=== PATIENT | female | born 1975 | race Two or more races ===

== ENCOUNTER 2025-02-14 12:00 | Emergency (ER) | payer MEDICAID, SELFPAY ==
[2025-02-14 12:01] VITALS: BMI 24.9
[2025-02-14 12:31] VITALS: BP 146/96; PULSE 96; RESP 18; TEMP 36.6; O2SAT 97
--- NOTE | 2025-02-14 12:32 | XR_ITS ---
Examination: Hand, right 3 views Technique: Hand AP, oblique, lateral 3 views Date and time of exam: February 14, 2025 1249 hours INDICATIONS: Patient fell today with injury to the hand, hand pain FINDINGS: No acute fracture No dislocation No foreign body IMPRESSION: No acute fracture
--- NOTE | 2025-02-14 12:32 | XR_ITS ---
Examination: Wrist, right 3 views Technique: Wrist AP, oblique, lateral 3 views Date and time of exam: February 14, 2025 1249 hours INDICATIONS: Patient fell today with into the wrist, wrist pain. FINDINGS: No acute fracture On the lateral view the distal ulna is mildly dorsally positioned No foreign body IMPRESSION: No acute fracture On the lateral view the distal ulna is mildly dorsally positioned, clinical correlation advised, recommend follow-up true lateral view of the wrist as clinically warranted
--- NOTE | 2025-02-14 12:33 | EDNOTE_ITS ---
ED General RME/HPI General Chief complaint: Fall Stated complaint: FELL OFF LATTER YESTERDAY, RT HAND/ARM PAIN Time Seen by Provider: 02/14/25 12:23 Arrival date/time: 02/14/25 12:00 CC: Right hand right wrist pain HPI fell off a ladder picking fruit last night, denies LOC or LOC. Has mild abrasion to the left leg. No other complaints denies LOC altered level of consciousness nausea vomiting or diarrhea comes in today to get checked out . Related Data Previous Rx's ?Medication ?Instructions ?Recorded hydroxyzine HCl 25 mg tablet 25 mg PO QID PRN itching #20 tabs 10/31/18 Allergies Allergy/AdvReac Type Severity Reaction Status Date / Time No Known Allergies Allergy Verified 02/14/25 12:01 Review of Systems Review of Systems Narrative Review of Systems: GEN: No fever, no chills, no weight loss EYES: No discharge, no visual changes, no pain HEENT: No ear pain, no congestion, no sore throat PULM: No shortness of breath, no cough, no congestion CV: No chest pain, no dyspnea on exertion, no palpitations GI: No nausea, no vomiting, no diarrhea, no pain, no constipation : No frequency, no urgency, no dysuria MUSC/SKEL: + joint pain, no back pain SKIN: No rash PSYCH: No hallucinations, no depression HEME/LYMPH: No easy bleeding or bruising tendencies NEURO: No weakness, no headache Past Medical History Past Medical History CARDIAC: Negative Congestive Heart Failure RESPIRATORY: Negative Chronic Obstructive Pulmonary Disease (COPD) GENITOURINARY: Negative Renal Disease ENDOCRINE: Negative Diabetes Mellitus Type 1 or Diabetes Mellitus Type 2 Social History SMOKING STATUS: Never smoker ED Exam Narrative Physical exam: [General: Obese not in cot no acute distress Head normocephalic no step-off hematoma induration ulceration or crepitus. HEENT: No raccoon's eyes [place] signs eyes pupils are PERRLA EOMs are intact mouth pink moist membranes uvula is midline swallow symmetrical phonation is normal all the subsystems of HEENT are within acceptable limits Neck is supple nontender Chest equal chest rise nontender to palpation Respiratory: Clear to auscultation no wheezes crackles or rubs CV: Rate rhythm is regular no murmurs rubs or clicks Abdomen is soft nontender no masses positive bowel sounds all 4 quadrants Back: No CVA tenderness no spinous process tenderness from cervical spine thoracic and lumbar spine Skin: Intact no petechiae rash induration ulceration or crepitus Extremities: Tenderness to palpation over the thenar eminence of the first digit right hand, full range of motion with pain no significant edema no gross abnormalities cap refill less than 2 seconds neurosensory intact full range of motion of the right wrist. No edema erythema or obvious deformity. Moving all other extremities against resistance cap refill less than 2 seconds neurosensory intact Neuro: Awake alert oriented x3 Glascow coma 15 no focal deficits] Course Quality Measures none Orders Category Date Time Status XR hand comp RT min 3V Stat Exams 02/14/25 12:32 Completed XR wrist comp RT min 3V Stat Exams 02/14/25 12:32 Completed TET,DIP/PERT AC (Adult)-Tdap [Boostrix Adult (Tdap) Med 02/14/25 12:35 Discontinued Vacc] 0.5 ml IMI .ONCE ONE Vital Signs Vital signs: Vital Signs Temperature 97.9 F 02/14/25 12:31 Pulse Rate 96 02/14/25 12:31 Respiratory Rate 18 02/14/25 12:31 Blood Pressure 146/96 H 02/14/25 12:31 Pulse Oximetry (%) 97 02/14/25 12:31 Oxygen Delivery Method Room Air 02/14/25 12:31 Discharge Plan Plan Patient Disposition: HOME (Self Care) Patient condition on transfer: Stable Prescriptions/Referrals Prescriptions/Med Rec: No Action hydroxyzine HCl 25 mg tablet 25 mg PO QID PRN (Reason: itching) Qty: 20 0RF Referrals: Niraj Faustin MD [Primary Care Provider] - In 1 week Problem List Clinical Impression: Contusion of hand Patient/Caregiver Discharge Instructions Education Materials: ED Hand Contusion Additional Instructions: X-ray shows no broken bones in your hand or wrist please follow-up with your primary care provider ibuprofen or Tylenol for pain avoid ladders for the next week. Print Language: Albanian Stand Alone Forms: Lidya Award Info., Work/School Release, Patient Portal Info Letter PA/LOTUS NOTES DEVELOPER Supervising Physician PA/LOTUS NOTES DEVELOPER Supervising Physician: Colten Mayo ENP MDM Meds/Rx Considered, not Ordered None Labs/Rad/Tests considered, not Ordered None Chronic Illness/Social Conditions which may negatively complicate care or outcome(s)-explain: None or not applicable Lab Interpretation Labs: none Imaging Provider imaging interpretation(s): X-ray of the hand and wrist are negative for any acute finding requires emergent or immediate intervention. Medication Administration(s) none Medication Administration History Discontinued Medications Diphtheria/Tetanus/Acell Pertussis (Diphth,Pertuss(Acell),Tet Vac 0.5 Ml Syr- Adult) 0.5 ml IMi .ONCE ONE Stop: 02/14/25 12:36 Last Admin: 02/14/25 13:04 Dose: 0.5 ml Documented By: JONNY Diagnosis Differential diagnosis: Finger fracture hand fracture wrist fracture Dispositon Disposition: Discharge Home
[2025-02-14] MEDS: DIPHTH,PERTUSS(ACELL),TET VAC 0.5 ML SYR- ADULT IMi (13:04)
== END 2025-02-14 16:52 | disposition home or self-care (01) ==
PROVIDERS: Emergency Provider Family Medicine; PCP Family Medicine
DX: S60.221A Contusion of right hand, initial encounter (principal); S80.812A Abrasion, left lower leg, initial encounter; W19.XXXA Unspecified fall, initial encounter; E66.9 Obesity, unspecified; Z23 Encounter for immunization
CPT/HCPCS: 73110; 73130; 90471; 90715; 99283